=== PATIENT | male | born 1995 | race Two or more races ===

== ENCOUNTER 2022-09-06 20:49 | Emergency (ER) | payer SELFPAY ==
[~2022-09-06] VITALS: Ht 162.6 cm; Wt 55.9 kg
[2022-09-06] MEDS ORDERED: IBUPROFEN 800 MG TAB PO ONE (22:45)
[2022-09-06 23:00] VITALS: BP 124/78
[2022-09-06] MEDS ORDERED: IBUP800T26 PO (23:02)
[2022-09-06] MEDS ORDERED: IBUP800T27 PO (23:04)
== END 2022-09-07 00:08 | disposition home or self-care (01) ==
LOC: ER 21:08
DX: S93.402A Sprain of unspecified ligament of left ankle, initial encounter (principal); Z79.1 Long term (current) use of non-steroidal anti-inflammatories (NSAID); X58.XXXA Exposure to other specified factors, initial encounter; Y93.89 Activity, other specified; Y92.89 Other specified places as the place of occurrence of the external cause; Y99.0 Civilian activity done for income or pay
CPT/HCPCS: 73600; 73630

== ENCOUNTER 2023-07-27 14:50 | Emergency (ER) | payer MEDICAID ==
[~2023-07-27] VITALS: Ht 162.6 cm; Wt 56.2 kg
[~2023-07-27 14:50] MED LIST: IBUP-1455 PO; IBUP-1456 PO
[2023-07-27] MEDS ORDERED: SODIUM CHLORIDE 0.9% 1,000 ML IV ONE (16:15)
[2023-07-27] MEDS ORDERED: ONDANSETRON HCL 4 MG/2 ML VIAL IV ONE (16:15)
[2023-07-27] MEDS ORDERED: KETOROLAC TROMETH 30 MG/ML 1ML VIAL IV ONE (16:15)
[2023-07-27] MEDS ORDERED: IBUP1TAB5 PO (16:21)
[2023-07-27] MEDS ORDERED: ZOFR4T PO (16:21)
[2023-07-27 16:35] VITALS: BP 120/69; PULSE 52; RESP 18; TEMP 97.9; O2SAT 98
== END 2023-07-27 17:19 | disposition home or self-care (01) ==
LOC: ER 14:50
DX: R51.9 Headache, unspecified (principal); R11.2 Nausea with vomiting, unspecified
CPT/HCPCS: 70450; 96361; 96374; 96375; 99285; J1885; J2405; J7030

== ENCOUNTER 2025-08-23 20:48 | Emergency (ER) | payer MEDICAID ==
[~2025-08-23] VITALS: Ht 165.1 cm; Wt 64.0 kg
[~2025-08-23 20:48] MED LIST changes: +IBUP1TAB5 PO; +ZOFR4T PO
[2025-08-23 21:42] VITALS: BP 135/79; PULSE 82; RESP 20; TEMP 98.5; O2SAT 97
[2025-08-23] MEDS ORDERED: IBUP-1456 PO (21:43)
[2025-08-23] MEDS ORDERED: HYDR2.5C39 TOP (21:43)
--- NOTE | 2025-08-23 21:44 | ED.PDOC ---
GI ASSESSMENT HPI Comments 30-year-old male presents to ER with complaints of rectal pain x1 day. Patient reports that he started experiencing rectal pain with associated "bulge" to rectal region yesterday while he was having a bowel movement. He rates his current rectal pain an 8/10 and denies use of medications for current symptoms. Patient presents to ER ambulatory on arrival, with steady gait, in no distress. Denies fever, body aches, chills, rectal bleeding, diet changes, fatigue, weight changes, abdominal/pelvic pain, changes in BM or any further symptoms/complaints Chief Complaint: Rectal Pain Time Seen by MD: 21:01 Primary Care Provider: UNKNOWN Reviewed Notes: Nurses Notes, Medications, Allergies Allergies: Coded Allergies: NO KNOWN ALLERGIES (Unverified , 09/06/22) Home Meds Active Scripts Ibuprofen (Ibuprofen) 800 Mg Tab, 1 TAB PO TID PRN, #30 TAB 0 Refills Prov:SHANNAN PARKER 08/23/25 Hydrocortisone Base (Anusol-Hc) 2.5 % Cre, 1 APPLIC TOP BID, #1 CRE 0 Refills Prov:SHANNAN PARKER 08/23/25 Ondansetron Odt 4MG Tab (ZOFRAN PO) 4 Mg Tb, 1 TAB PO Q8HR, #12 TAB As needed for nausea vomiting ODT TAB-DISSOLVE IN MOUTH, THEN SWALLOW Prov:NICK BERRIOS POLYSOMNOGRAPH TECH 07/27/23 Ibuprofen Micronized (Ibuprofen) 600 Mg Tab, 1 TAB PO Q6HR, #20 TAB as needed for headache Prov:NICK BERRIOS POLYSOMNOGRAPH TECH 07/27/23 Ibuprofen (Ibuprofen) 800 Mg Tab, 800 MG PO TID PRN for 30 Days, #90 TAB Prov:ADDY MIRZA 09/06/22 Ibuprofen Micronized (Ibuprofen) 800 Mg Tab, 800 MG PO TID PRN for 30 Days, #90 TAB Prov:ADDY MIRZA 09/06/22 Information Source: Patient Mode of Arrival: Ambulatory Past Medical History PAST MEDICAL HISTORY: Denies Surgical History: Denies all surgeries Family History Family History: Unknown Social History Smoker: Non-Smoker Alcohol: Denies ETOH Use Drugs: Denies Drug Use Lives In: Home Constitutional: denies: chills, diaphoresis, fatigue, fever, malaise, sweats, weakness, others EENTM: denies: blurred vision, double vision, ear bleeding, ear discharge, ear drainage, ear pain, ear ringing, eye pain, eye redness, hearing loss, mouth pain, mouth swelling, nasal discharge, nose bleeding, nose congestion, nose pain, photophobia, tearing, throat pain, throat swelling, voice changes, others Respiratory: denies: cough, hemoptysis, orthopnea, SOB at rest, shortness of breath, SOB with excertion, stridor, wheezing, others Cardiovascular: denies: chest pain, dizzy spells, diaphoresis, Dyspnea on exertion, edema, irregular heart beat, left arm pain, lightheadedness, palpitations, PND, syncope, others Gastrointestinal: reports: others (As stated in HPI) Genitourinary: denies: burning, dysuria, flank pain, frequency, hematuria, incontinence, penile discharge, penile sore, pain, testicle pain, testicle swelling, urgency, others Neurological: denies: dizziness, fainting, headache, left sided numbness, left sided weakness, numbness, paresthesia, pre-existing deficit, right sided numbness, right sided weakness, seizure, speech problems, tingling, tremors, weakness, others Musculoskeletal: denies: back pain, gout, joint pain, joint swelling, muscle pain, muscle stiffness, neck pain, others Integumetry: reports: others (As stated in HPI) Allergic/Immunocompromised: denies: Difficulty Healing, Frequent Infections, Hives, Itching, others Hematologic/Lymphatic: denies: anemia, blood clots, easy bleeding, easy bruising, swollen glands, others Endocrine: denies: excessive hunger, excessive sweating, excessive thirst, excessive urination, flushing, intolerance to cold, intolerance to heat, unexplained weight gain, unexplained weight loss, others Psychiatric: denies: anxiety, bipolar disorder, depression, hopeless, panic disorder, schizophrenia, sleepless, suicidal, others Physical Exam General Appearance: No Apparent Distress HEENT: PERRL/EOMI Neck: Full Range of Motion, Non-Tender, Normal Respiratory: Chest Non-Tender, Lungs Clear, No Accessory Muscle Use, No Respiratory Distress, Normal Breath Sounds Cardiovascular: No Murmur, No Gallop, Regular Rate/Rhythm Breast Exam: Deferred Gastrointestinal: Non Tender, No Pulsatile Mass, Soft Genitalia: Deferred Pelvic: Deferred Rectal: Hemorrhoids (Small right-sided external hemorrhoid noted without bleeding), Normal rectal tone Extremities: Normal capillary refill, Normal range of motion Neurologic: Alert, No Motor Deficits, Normal Affect, Normal Mood, No Sensory D eficits Cerebellar Function: Normal Reflexes: Normal Skin: Dry, Normal Color, Warm Lymphatic: No Adenopathy Was a procedure done? Was a procedure done?: No Sedation Sedation?: No GI differential Dx Differential Diagnosis: GI hemorrhage, Ischemic Bowel, Trauma intraabdominal, Other (abscess, mass) X-Ray, Labs, Meds, VS Vital Signs Date Time Temp Pulse Resp B/P (MAP) Pulse Ox O2 Delivery O2 Flow Rate FiO2 08/23/25 21:42 98.5 82 20 135/79 (97) 97 98.5 08/23/25 21:42 Room Air* 0 08/23/25 20:54 98.5 82 20 135/79 97 98.5 Warm Sitz baths discussed and advised Diet education discussed Ibuprofen 800 mg p.o. ordered Advised to follow up with PCP and colorectal surgeon in 1-2 days Patient verbalized understanding and agreeable with current plan of care Advised to return to ER immediately if symptoms worsen Time of 1ST Reevaluation: 21:20 Reevaluation 1ST: N/A Patient Education/Counseling: Diagnosis, Treatment, Prognosis, Need For Follow Up Family Education/Counseling: No Family Present SEPSIS Sepsis Screen Date sepsis recognized/suspect: Aug 23, 2025 Time Sepsis recognized/suspect: 2056 Recent Procedure: No On Antibiotic Therapy: No Respiratory Rate >20: No Heart Rate >90: No Temp<36 C (96.8 F) or >38.3 C: No SBP <90 or MAP <65 mmHG: No New Acute Mental Status Change: No Is the patient on CPAP, BIPAP,: No Physician Orders Ibuprofen Tablet (Motrin Tablet) (08/23/25 21:45) Vital Signs Date Time Temp Pulse Resp B/P (MAP) Pulse Ox O2 Delivery O2 Flow Rate FiO2 08/23/25 21:42 98.5 82 20 135/79 (97) 97 98.5 08/23/25 21:42 Room Air* 0 21 08/23/25 20:54 98.5 82 20 135/79 97 98.5 Departure 1 Departure Time of Disposition: 21:41 Impression: Primary Impression: External hemorrhoid Disposition: 01 HOME / SELF CARE / HOMELESS Condition: Stable e-Prescriptions Ibuprofen (Ibuprofen) 800 Mg Tab 1 TAB PO TID PRN, #30 TAB 0 Refills Prov: SHANNAN PARKER 08/23/25 Hydrocortisone Base (Anusol-Hc) 2.5 % Cre 1 APPLIC TOP BID, #1 CRE 0 Refills Prov: SHANNAN PARKER 08/23/25 Discharged With: Self Critical Care Note Critical Care Time?: No Stability Stability form required: No Heart Score Heart Score: Heart Score Response (Comments) Value History N/A 0 EKG N/A 0 Age N/A 0 Risk Factors N/A 0 Troponin N/A 0 Total 0 SHANNAN PARKER Aug 23, 2025 21:44
[2025-08-23] MEDS: IBUPROFEN 600 MG TAB PO ONE (21:53)
== END 2025-08-23 21:44 | disposition home or self-care (01) ==
LOC: ER 20:48
DX: K64.4 Residual hemorrhoidal skin tags (principal); Z79.899 Other long term (current) drug therapy

== ENCOUNTER 2025-10-04 20:59 | Emergency (ER) | payer MEDICAID ==
[~2025-10-04] VITALS: Ht 162.6 cm; Wt 62.0 kg
[~2025-10-04 20:59] MED LIST changes: +HYDR2.5C39 TOP
[2025-10-04 22:34] LABS: Urine Protein, UAD Negative (Negative)
--- NOTE | 2025-10-04 23:21 | ED.PDOC ---
General HPI Comments 30 year old male presents to ER with testicular pain x 1 week. Patient states he started experiencing pain/swelling to right testicle with associated burning with urination 1 week ago after he received oral sex. He rates his current pain an 8/10 and denies use of medications for current symptoms. Denies fever, body aches, chills, n/v, abdominal/pelvic pain, back/flank pain, penile discharge, further changes in urination, skin changes or any further symptoms/complaints Chief Complaint: Penile Problem Time Seen by MD: 21:23 Primary Care Provider: UNKNOWN Reviewed notes: Nurses Notes, Medications, Allergies Allergies: Coded Allergies: NO KNOWN ALLERGIES (Unverified , 09/06/22) Home Meds Active Scripts Ibuprofen (Ibuprofen) 800 Mg Tab, 1 TAB PO TID PRN, #30 TAB 0 Refills Prov:SHANNAN PARKER 10/04/25 Ibuprofen (Ibuprofen) 800 Mg Tab, 1 TAB PO TID PRN, #30 TAB 0 Refills Prov:SHANNAN PARKER 08/23/25 Hydrocortisone Base (Anusol-Hc) 2.5 % Cre, 1 APPLIC TOP BID, #1 CRE 0 Refills Prov:SHANNAN PARKER 08/23/25 Ondansetron Odt 4MG Tab (ZOFRAN PO) 4 Mg Tb, 1 TAB PO Q8HR, #12 TAB As needed for nausea vomiting ODT TAB-DISSOLVE IN MOUTH, THEN SWALLOW Prov:NICK BERRIOS Q [employer] REPAIR SUPERVISOR 07/27/23 Ibuprofen Micronized (Ibuprofen) 600 Mg Tab, 1 TAB PO Q6HR, #20 TAB as needed for headache Prov:NICK BERRIOS G[employer]ER REPAIR SUPERVISOR 07/27/23 Ibuprofen (Ibuprofen) 800 Mg Tab, 800 MG PO TID PRN for 30 Days, #90 TAB Prov:ADDY MIRZAP 09/06/22 Ibuprofen Micronized (Ibuprofen) 800 Mg Tab, 800 MG PO TID PRN for 30 Days, #90 TAB Prov:ADDY MIRZA 09/06/22 Information Source: Patient Mode of Arrival: Ambulatory Past Medical History PAST MEDICAL HISTORY: Denies Surgical History: Denies all surgeries Family History Family History: Unknown Social History Smoker: Non-Smoker Alcohol: Denies ETOH Use Drugs: Denies Drug Use Lives In: Home Constitutional: denies: chills, diaphoresis, fatigue, fever, malaise, sweats, weakness, others EENTM: denies: blurred vision, double vision, ear bleeding, ear discharge, ear drainage, ear pain, ear ringing, eye pain, eye redness, hearing loss, mouth pain, mouth swelling, nasal discharge, nose bleeding, nose congestion, nose pain, photophobia, tearing, throat pain, throat swelling, voice changes, others Respiratory: denies: cough, hemoptysis, orthopnea, SOB at rest, shortness of breath, SOB with excertion, stridor, wheezing, others Cardiovascular: denies: chest pain, dizzy spells, diaphoresis, Dyspnea on exertion, edema, irregular heart beat, left arm pain, lightheadedness, palpitations, PND, syncope, others Gastrointestinal: denies: abdomen distended, abdominal pain, blood streaked bowels, constipated, diarrhea, dysphagia, difficulty swallowing, hematemesis, melena, nausea, poor appetite, poor fluid intake, rectal bleeding, rectal pain, vomiting, others Genitourinary: reports: others (As stated in HPI) Neurological: denies: dizziness, fainting, headache, left sided numbness, left sided weakness, numbness, paresthesia, pre-existing deficit, right sided numbness, right sided weakness, seizure, speech problems, tingling, tremors, weakness, others Musculoskeletal: denies: back pain, gout, joint pain, joint swelling, muscle pain, muscle stiffness, neck pain, others Integumetry: reports: others (As stated in HPI) Allergic/Immunocompromised: denies: Difficulty Healing, Frequent Infections, Hives, Itching, others Hematologic/Lymphatic: denies: anemia, blood clots, easy bleeding, easy bruising, swollen glands, others Endocrine: denies: excessive hunger, excessive sweating, excessive thirst, excessive urination, flushing, intolerance to cold, intolerance to heat, unexplained weight gain, unexplained weight loss, others Psychiatric: denies: anxiety, bipolar disorder, depression, hopeless, panic disorder, schizophrenia, sleepless, suicidal, others Physical Exam General Appearance: No Apparent Distress HEENT: PERRL/EOMI Neck: Full Range of Motion, Non-Tender, Normal Respiratory: Chest Non-Tender, Lungs Clear, No Accessory Muscle Use, No Respi ratory Distress, Normal Breath Sounds Cardiovascular: No Murmur, No Gallop, Regular Rate/Rhythm Breast Exam: Deferred Gastrointestinal: Non Tender, No Pulsatile Mass, Soft Genitalia: Normal Pelvic: Deferred Rectal: Deferred Extremities: Normal capillary refill, Normal range of motion, Pedal edema Neurologic: Alert, No Motor Deficits, Normal Affect, Normal Mood, No Sensory Deficits Cerebellar Function: Normal Reflexes: Normal Skin: Dry, Normal Color, Warm Lymphatic: No Adenopathy Was a procedure done? Was a procedure done?: No Sedation Sedation?: No Differential Diagnosis Kidney stone (Female): N/A Penile/Scrotal: STD, UTI, Testicular Torsion Urinary Problem (Male): Epididymitis X-Ray, Labs, Meds, VS Vital Signs Date Time Temp Pulse Resp B/P (MAP) Pulse Ox O2 Delivery O2 Flow Rate FiO2 10/04/25 21:07 98.0 80 16 134/70 (91) 98 98.0 10/04/25 21:03 98.0 80 16 134/70 98 98.0 Lab Test 10/04/25 23:18 10/04/25 22:00 Range/Units White Blood Count 10.0 4.4-10.8 10^3/uL Red Blood Count 4.77 4.5-5.90 10^6/uL Hemoglobin 14.6 13.5-17.5 g/dL Hematocrit 42.0 41.0-53.0 % Mean Corpuscular Volume 88.1 80.0-100.0 fL Mean Corpuscular Hemoglobin 30.6 28.0-32.0 pg Mean Corpuscular Hemoglobin Concent 34.7 32.0-36.0 g/dL Red Cell Distribution Width 13.1 11.8-14.3 % Platelet Count 280 140-450 10^3/uL Mean Platelet Volume 7.2 6.9-10.8 fL Neutrophils (%) (Auto) 45.1 37.0-80.0 % Lymphocytes (%) (Auto) 38.7 10.0-50.0 % Monocytes (%) (Auto) 9.8 0.0-12.0 % Eosinophils (%) (Auto) 5.7 0.0-7.0 % Basophils (%) (Auto) 0.7 0.0-2.0 % Neutrophils # (Auto) 4.5 1.6-8.6 10 ^3/uL Lymphocytes # (Auto) 3.9 0.4-5.4 10 ^3/uL Monocytes # (Auto) 1.0 0-1.3 10 ^3/uL Eosinophils # (Auto) 0.6 0-0.8 10 ^3/uL Basophils # (Auto) 0.1 0-0.2 10 ^3/uL Nucleated Red Blood Cells 0.0 % Urine Color Light-yellow Yellow Urine Clarity Clear Clear Urine pH 6.0 5.0-9.0 Urine Specific [place] 1.026 1.001-1.035 Urine Protein Negative Negative Urine Ketones Negative Negative Urine Blood Negative Negative /uL Urine Nitrite Negative Negative Urine Bilirubin Negative Negative Urine Urobilinogen Normal Negative mg/dL Urine Leukocyte Esterase Negative Negative /uL Urine RBC 1 0 - 3 /hpf Urine Microscopic WBC < 1 0-3 /HPF Urine Squamous Epithelial Cells None seen <5 /hpf Urine Bacteria None seen None Seen /hpf Urine Mucus Few None Seen Urine Glucose Normal Normal mg/dL Chlamydia trachomatis ([facility]) Pending Neisseria gonorrhoeae ([facility]) Pending PATIENT: FRANK JOSHUA ACCT: [id number] UNIT: [id number] : 1995 LOC: ER ROOM / BED: / AGE / SEX: 30 / M ADM STATUS: REG ER SERVICE [id number] ORDERING PHYSICIAN: SHANNAN PARKER PROCEDURE(s): TESUS - TESTICULAR ULTRASOUND REASON: right testicular pain ORDER NUMBER(s): [id number], ACCESSION NUMBER(s): [id number] ULTRASOUND OF SCROTUM AND CONTENTS. INDICATION: right testicular pain COMPARISON: None TECHNIQUE: Multiple real-time grayscale sonographic and color and duplex Doppler images of the scrotum and its contents were obtained. FINDINGS: The right testicle measures 3.9 x 1.9 x 2.7 cm. The left testicle measures 4.2 x 2.6 x 2.8 cm. Both testicles demonstrate homogeneous echotexture without evidence of focal lesions. Right and left epididymis appear normal. Subsequent color and duplex Doppler interrogation of the testes demonstrated symmetric normal vascular flow to both testicles. No focal areas of hyperemia were seen. IMPRESSION: No evidence of torsion, epididymitis, and/or orchitis. ATED BY: SWEETIE BULLARD MD DICTATED DATE/TIME: 10/05/2534 SIGNED BY: SWEETIE BULLARD MD SIGNED DATE/TIME: 10/05/2534 CC: Urinalysis reviewed-unremarkable CBC reviewed-unremarkable Chlamydia/ gonorrhea amplification test ordered Testicular ultrasound reviewed Advised to drink plenty of fluids Safe sex practices discussed and advised Advised to follow up with PCP and urologist in 1-2 days Patient verbalized understanding and agreeable with current plan of care Advised to return to ER immediately if symptoms were Images Reviewed?: Images reviewed and evaluated by me Time of 1ST Reevaluation: 23:04 Reevaluation 1ST: N/A Patient Education/Counseling: Diagnosis, Treatment, Prognosis, Need For Follow Up Family Education/Counseling: No Family Present SEPSIS Sepsis Screen Date sepsis recognized/suspect: Oct 04, 2025 Time Sepsis recognized/suspect: 2105 Recent Procedure: No On Antibiotic Therapy: No Respiratory Rate >20: No Heart Rate >90: No Temp<36 C (96.8 F) or >38.3 C: No SBP <90 or MAP <65 mmHG: No New Acute Mental Status Change: No Is the patient on CPAP, BIPAP,: No Physician Orders Chlamydia/Gc Amplification (10/04/25 21:23) Testicular Ultrasound (10/04/25 23:11) Vital Signs Date Time Temp Pulse Resp B/P (MAP) Pulse Ox O2 Delivery O2 Flow Rate FiO2 10/04/25 21:07 98.0 80 16 134/70 (91) 98 98.0 10/04/25 21:03 98.0 80 16 134/70 98 98.0 Laboratory Tests Test 10/04/25 23:18 White Blood Count 10.0 10^3/uL (4.4-10.8) Departure 1 Departure Time of Disposition: 23:20 Impression: Primary Impression: Right testicular pain Additional Impression: Dysuria Disposition: 01 HOME / SELF CARE / HOMELESS Condition: Stable e-Prescriptions Ibuprofen (Ibuprofen) 800 Mg Tab 1 TAB PO TID PRN, #30 TAB 0 Refills Prov: SHANNAN PARKER 10/04/25 Discharged With: Self Critical Care Note Critical Care Time?: No Stability Stability form required: No Heart Score Heart Score: Heart Score Response (Comments) Value History N/A 0 EKG N/A 0 Age N/A 0 Risk Factors N/A 0 Troponin N/A 0 Total 0 SHANNAN PARKER Oct 04, 2025 23:21
[2025-10-04 23:31] LABS: Hematocrit 42.0 % (41.0-53.0); Hemoglobin 14.6 g/dL (13.5-17.5); Mean Corpuscular Hemoglobin 30.6 pg (28.0-32.0); Mean Corpuscular Volume 88.1 fL (80.0-100.0); Nucleated Red Blood Cells % 0.0 %
--- NOTE | 2025-10-05 00:37 | DVH ---
ULTRASOUND OF SCROTUM AND CONTENTS. INDICATION: right testicular pain COMPARISON: None TECHNIQUE: Multiple real-time grayscale sonographic and color and duplex Doppler images of the scrotum and its contents were obtained. FINDINGS: The right testicle measures 3.9 x 1.9 x 2.7 cm. The left testicle measures 4.2 x 2.6 x 2.8 cm. Both testicles demonstrate homogeneous echotexture without evidence of focal lesions. Right and left epididymis appear normal. Subsequent color and duplex Doppler interrogation of the testes demonstrated symmetric normal vascular flow to both testicles. No focal areas of hyperemia were seen. IMPRESSION: No evidence of torsion, epididymitis, and/or orchitis.
[2025-10-05 01:19] VITALS: BP 108/73; PULSE 61; RESP 18; TEMP 98.6; O2SAT 100
[2025-10-07 03:07] LABS: Chlamydia Trachomatis, NAA Negative (Negative); Neisseria gonorrhoeae, NAA Negative (Negative)
== END 2025-10-05 01:20 | disposition home or self-care (01) ==
LOC: ER 20:59
DX: N50.811 Right testicular pain (principal); R30.0 Dysuria; Z79.899 Other long term (current) drug therapy
CPT/HCPCS: 36415; 76870; 81001; 85025

== ENCOUNTER 2025-10-23 15:13 | Emergency (ER) | payer SELFPAY ==
[~2025-10-23] VITALS: Ht 162.6 cm; Wt 60.3 kg
[2025-10-23 15:59] VITALS: BP 129/61; PULSE 65; RESP 14; TEMP 98.8; O2SAT 96
--- NOTE | 2025-10-23 16:20 | ED.PDOC ---
General HPI Comments 30 year old male presents to the ED with a chief complaint of penile pain onset 4 weeks. Patient states he has been experiencing penile pain, redness, swelling, dysuria for the past 4 weeks. He was seen at [facility], STD screening was negative. Patient is concerned due to symptoms not improving. States the pain is more on the outside/around the rim of the glans penis. States there was no obvious lesions. Reports pain is worse with the erection. Denies penile discharge, hematuria, fever, chills, nausea, vomiting, diarrhea. No other symptoms or modifying factors present at this time. Chief Complaint: Penile Problem Time Seen by MD: 16:05 Primary Care Provider: UNKNOWN Reviewed notes: Nurses Notes, Medications, Allergies Allergies: Coded Allergies: NO KNOWN ALLERGIES (Unverified , 09/06/22) Home Meds Active Scripts Ibuprofen (Ibuprofen) 800 Mg Tab, 1 TAB PO TID PRN, #30 TAB 0 Refills Prov:SHANNAN PARKER 10/04/25 Ibuprofen (Ibuprofen) 800 Mg Tab, 1 TAB PO TID PRN, #30 TAB 0 Refills Prov:SHANNAN PARKER 08/23/25 Hydrocortisone Base (Anusol-Hc) 2.5 % Cre, 1 APPLIC TOP BID, #1 CRE 0 Refills Prov:SHANNAN PARKER 08/23/25 Ondansetron Odt 4MG Tab (ZOFRAN PO) 4 Mg Tb, 1 TAB PO Q8HR, #12 TAB As needed for nausea vomiting ODT TAB-DISSOLVE IN MOUTH, THEN SWALLOW Prov:NICK BERRIOS Q [employer] 07/27/23 Ibuprofen Micronized (Ibuprofen) 600 Mg Tab, 1 TAB PO Q6HR, #20 TAB as needed for headache Prov:NICK BERRIOS Q [employer] 07/27/23 Ibuprofen (Ibuprofen) 800 Mg Tab, 800 MG PO TID PRN for 30 Days, #90 TAB Prov:ADDY MIRZAP 09/06/22 Ibuprofen Micronized (Ibuprofen) 800 Mg Tab, 800 MG PO TID PRN for 30 Days, #90 TAB Prov:ADDY MIRZA 09/06/22 Information Source: Patient Mode of Arrival: Ambulatory Severity: Moderate Timing: Weeks Duration: Since onset Prehospital treatment: None Onset: Spontaneous Symptoms: Dysuria, Other History of: None Penile discharge: None Modifying factors: None associated signs and symptoms: Dysuria, Other Past Medical History PAST MEDICAL HISTORY: Denies Surgical History: Denies all surgeries Family History Family History: Unknown Social History Smoker: Non-Smoker Alcohol: Denies ETOH Use Drugs: Denies Drug Use Lives In: Home Constitutional: denies: chills, diaphoresis, fatigue, fever, malaise, sweats, weakness, others EENTM: denies: blurred vision, double vision, ear bleeding, ear discharge, ear drainage, ear pain, ear ringing, eye pain, eye redness, hearing loss, mouth pain, mouth swelling, nasal discharge, nose bleeding, nose congestion, nose pain, photophobia, tearing, throat pain, throat swelling, voice changes, others Respiratory: denies: cough, hemoptysis, orthopnea, SOB at rest, shortness of breath, SOB with excertion, stridor, wheezing, others Cardiovascular: denies: chest pain, dizzy spells, diaphoresis, Dyspnea on exertion, edema, irregular heart beat, left arm pain, lightheadedness, palpitations, PND, syncope, others Gastrointestinal: denies: abdomen distended, abdominal pain, blood streaked bowels, constipated, diarrhea, dysphagia, difficulty swallowing, hematemesis, melena, nausea, poor appetite, poor fluid intake, rectal bleeding, rectal pain, vomiting, others Genitourinary: reports: dysuria, pain (penile pain); denies: burning, flank pain, frequency, hematuria, incontinence, penile discharge, penile sore, testicle pain, testicle swelling, urgency, others Neurological: denies: dizziness, fainting, headache, left sided numbness, left sided weakness, numbness, paresthesia, pre-existing deficit, right sided n umbness, right sided weakness, seizure, speech problems, tingling, tremors, weakness, others Musculoskeletal: denies: back pain, gout, joint pain, joint swelling, muscle pain, muscle stiffness, neck pain, others Integumetry: denies: bruises, change in color, change in hair/nails, dryness, laceration, lesions, lumps, rash, wounds, others Allergic/Immunocompromised: denies: Difficulty Healing, Frequent Infections, Hives, Itching, others Hematologic/Lymphatic: denies: anemia, blood clots, easy bleeding, easy bruising, swollen glands, others Endocrine: denies: excessive hunger, excessive sweating, excessive thirst, excessive urination, flushing, intolerance to cold, intolerance to heat, unexplained weight gain, unexplained weight loss, others Psychiatric: denies: anxiety, bipolar disorder, depression, hopeless, panic disorder, schizophrenia, sleepless, suicidal, others All Other Systems: Reviewed and Negative Physical Exam General Appearance: Normal HEENT: Normal ENT Inspection, Pharynx Normal, TMs Normal Neck: Full Range of Motion, Non-Tender, Normal, Normal Inspection Respiratory: Chest Non-Tender, Lungs Clear, No Accessory Muscle Use, No Respiratory Distress, Normal Breath Sounds Cardiovascular: No Edema, No JVD, No Murmur, No Gallop, Normal Peripheral Pulses, Regular Rate/Rhythm Breast Exam: Deferred Gastrointestinal: No Organomegaly, Non Tender, No Pulsatile Mass, Normal Bowel Sounds, Soft Genitalia: Deferred Pelvic: Deferred Rectal: Deferred Extremities: No calf tenderness, Normal capillary refill, Normal inspection, Normal range of motion, Non-tender, No pedal edema Musculoskeletal : Apperance: Normal Neurologic: Alert, formula checker II-XII nml as Tested, No Motor Deficits, Normal Affect, Normal Mood, No Sensory Deficits Cerebellar Function: Normal Reflexes: Normal Skin: Dry, Normal Color, Warm Lymphatic: No Adenopathy Was a procedure done? Was a procedure done?: No Differential Diagnosis Kidney stone (Female): N/A Penile/Scrotal: STD, UTI X-Ray, Labs, Meds, VS Vital Signs Date Time Temp Pulse Resp B/P (MAP) Pulse Ox O2 Delivery O2 Flow Rate FiO2 10/23/25 15:59 98.8 65 14 129/61 (83) 96 98.8 10/23/25 15:16 98.9 65 12 129/81 98 98.9 X-Ray, Labs, Meds, VS Comment Imaging was reviewed by this provider, there is no obvious pathological or acute disease process. Pending radiology review Labs were reviewed by this provider, no abnormalities Vital signs reviewed by this provider, clinically stable Time of 1ST Reevaluation: 16:35 Reevaluation 1ST: Unchanged Patient Education/Counseling: Diagnosis, Treatment, Prognosis, Need For Follow Up (Follow up with PCP next available appointment. Return to emergency department if symptoms worsen.) Family Education/Counseling: No Family Present SEPSIS Sepsis Screen Date sepsis recognized/suspect: Oct 23, 2025 Time Sepsis recognized/suspect: 1518 Recent Procedure: No On Antibiotic Therapy: No Respiratory Rate >20: No Heart Rate >90: No Temp<36 C (96.8 F) or >38.3 C: No SBP <90 or MAP <65 mmHG: No New Acute Mental Status Change: No Is the patient on CPAP, BIPAP,: No Vital Signs Date Time Temp Pulse Resp B/P (MAP) Pulse Ox O2 Delivery O2 Flow Rate FiO2 10/23/25 15:59 98.8 65 14 129/61 (83) 96 98.8 10/23/25 15:16 98.9 65 12 129/81 98 98.9 Departure 1 Departure Time of Disposition: 16:24 Impression: Primary Impression: Erica Disposition: HOME / SELF CARE / HOMELESS Condition: Stable e-Prescriptions Clotrimazole W/ Betamethasone (Clotrimazole/Betamethason 1-0.05 %) 1 Cre Cre 1 CRE EX TID for 7 Days, #30 CRE Prov: SHANA BOLIVAR 10/23/25 Discharged With: Self Critical Care Note Critical Care Time?: No Stability Stability form required: No Heart Score Heart Score: Heart Score Response (Comments) Value History N/A 0 EKG N/A 0 Age N/A 0 Risk Factors N/A 0 Troponin N/A 0 Total 0 I personally scribed for SHANA BOLIVAR ([email or web address]) on 10/23/25 at 16:20. Electronically submitted by Nancy Minaya ([email or web address]). SHANA BOLIVAR Oct 23, 2025 16:20
[2025-10-23] MEDS ORDERED: CLOTCRE3 EX (16:26)
== END 2025-10-23 16:34 | disposition home or self-care (01) ==
LOC: ER 15:13
DX: N48.1 Balanitis (principal)